=== PATIENT | male | born 1945 | race Caucasian/White ===

== ENCOUNTER 2017-12-07 10:44 | Inpatient (IN) | payer MEDICARE, OTHER ==
[2017-12-07] MEDS ORDERED: Ondansetron ODT 8 MG TAB ONE (11:31)
[2017-12-07 11:47] LABS: #Lymphocytes 0.7 thou/uL (1.20-3.40); #Monocytes 1.5 thou/uL (0.11-0.59); #Neutrophils 9.7 thou/uL (1.40-6.50); %Basophils 0.2 % (0.0-1.0); %Eosinophils 0.2 % (0.0-10.0); %Monocytes 12.2 % (0.0-10.0); %Neutrophils 81.4 % (42.0-75.0); Hemoglobin 14.9 g/dL (14.0-18.0); Mean Corpuscular HGB CONC 34.5 g/dL (32.0-36.0); Mean Corpuscular Hemoglobin 29.4 pg (27.0-31.0); Mean Corpuscular Volume 85.2 fL (78.0-98.0); Platelet Count 145 thou/uL (130-400); RBC Distribution Width 12.1 % (11.5-14.5); Red Blood Cell (RBC) Count 5.08 mill/uL (4.70-6.10)
[2017-12-07 11:52] LABS: INR-International Normal Ratio 1.1; PTT 36.7 SEC (22.9-36.1); Prothrombin Time 14.7 SEC (12.0-14.7)
[2017-12-07 12:07] LABS: ALT (SGPT) 15 U/L (8-55); AST (SGOT) 48 U/L (5-34); Albumin 4.2 g/dL (3.4-4.8); Alkaline Phosphatase 76 U/L (40-150); Anion Gap 11 mmol/L (10-20); BUN (Urea Nitrogen) 12 mg/dL (8.4-25.7); Bilirubin, Total 4.8 mg/dL (0.2-1.2); Calc. Creatinine Clearance 0 mL/min (70-130); Calcium 9.5 mg/dL (7.8-10.44); Carbon Dioxide 29 mmol/L (23-31); Chloride 93 mmol/L (98-107); Estimated GFR-MDRD 77; Globulin 3.4 g/dL (2.4-3.5); Glucose 102 mg/dL (83-110); Potassium 3.2 mmol/L (3.5-5.1); Protein, Total 7.6 g/dL (5.8-8.1); Sodium 130 mmol/L (136-145)
[2017-12-07 12:45] LABS: Bilirubin Small (Negative); Blood, Urine Large (Negative); Clarity CLEAR (Clear); Glucose, Urine (Dipstick) Negative (Negative); Leukocyte Small (Negative); Nitrite Negative (Negative); Protein, Urine (Dipstick) 100 mg/dL (Neg-Trace); Specific Gravity, Urine 1.019 (1.002-1.036)
[2017-12-07 12:46] LABS: Bacteria/HPF None Seen HPF (None Seen); Hyaline Casts/LPF 7-10 HYALINE CAST LPF (0-3 Hyaline); Pathc Cast-AUWi Flag 0.58 (0-2.49); RBC/HPF 21-50 HPF (0-3)
[2017-12-07 12:53] LABS: Renal Epithelial None Seen HPF (0-3); Transitional Epithelial NONE SEEN HPF (0-3)
[2017-12-07] MEDS ORDERED: Potassium Chloride 40 MEQ in Sodium Chloride 0.9% 500 ML IVPB ONE (13:00)
[2017-12-07] MEDS ORDERED: cefTRIAXone\\ROCEPHIN 1 GM VIAL ONE (13:17)
[2017-12-07] MEDS ORDERED: Acetaminophen 500 MG TAB ONE (13:32)
[2017-12-07] MEDS ORDERED: Zolpidem Tartrate 5 MG TAB PO PRN (14:29)
[2017-12-07] MEDS ORDERED: traMADol HCl 50 MG TAB PO PRN (14:29)
[2017-12-07] MEDS ORDERED: Chloraseptic Spray 180 ml Bottle PO PRN (14:29)
[2017-12-07] MEDS ORDERED: Loperamide HCl 2 MG CAP PO PRN (14:29)
[2017-12-07] MEDS ORDERED: Ondansetron HCl/PF 4 MG/2 ML Vial IVP PRN (14:29)
[2017-12-07] MEDS ORDERED: hydrALAZINE 20 MG/ML VIAL SLOW IVP PRN (14:29)
[2017-12-07] MEDS ORDERED: Promethazine HCl 25 MG/ML VIAL IM/IV PRN (14:29)
[2017-12-07] MEDS ORDERED: Senokot 8.6 MG TAB PO PRN (14:29)
[2017-12-07] MEDS ORDERED: Artificial Tear Sol 15 ML BOT EA EYE PRN (14:29)
[2017-12-07] MEDS ORDERED: Ondansetron ODT 4 MG TAB PO PRN (14:29)
[2017-12-07] MEDS ORDERED: Sodium Chloride 0.65% Nasal 44 ML BOT EA NARE PRN (14:29)
[2017-12-07] MEDS ORDERED: Mag-Al 1200 mg/1200 mg/30 ML UDCUP PO PRN (14:29)
[2017-12-07] MEDS ORDERED: Loratadine 10 MG TAB PO PRN (14:29)
[2017-12-07] MEDS ORDERED: Milk Of Magnesia 30 ML UDCUP PO PRN (14:29)
[2017-12-07] MEDS ORDERED: Labetalol HCl 100 MG/20 ML VIAL SLOW IVP PRN (14:29)
[2017-12-07] MEDS ORDERED: Diabetic Tussin 200 MG/10 ML UDCUP PO PRN (14:29)
[2017-12-07] MEDS ORDERED: Eucerin (Mineral Oil/Petrolatum,White) 30 gm Jar TOP PRN (14:29)
[2017-12-07 14:32] VITALS: BMI 27.0
--- NOTE | 2017-12-07 14:32 | HP ---
PRIMARY CARE PHYSICIAN: Dr. Anthony in [place]. REASON FOR ADMISSION: Sent by alarm signaler for dehydration. HISTORY OF PRESENT ILLNESS: A 72-year-old male who has underlying history of benign enlargement of prostate on Flomax who started having acute flank pain on Monday night. His pain was radiating to left side of flank region. He had several, 8 times vomiting containing of food particle. He thought maybe constipation and that is why he took enema by himself at home and he had clear bowel movement. Despite that, during nighttime he had persistent vomiting. The next day morning he was trying to see his primary care physician, but he was not able to make it and he was referred to emergency room. On that day, Monday, the patient had CT abdomen and the patient was diagnosed with hemorrhagic renal cysts. The patient was given followup appointment with Dr. Brooks and the patient was prescribed Zofran and tramadol, and he was discharged home. After going home, the patient continued to have nausea and vomiting. He was not able to handle food. He was only drinking some water and Gatorade. Sometimes he was able to hold, but most of the time he was not able to hold. He was trying Zofran and tramadol. For the last couple of days, the patient was also experiencing difficulty urination. He was having increased frequency. He was not able to empty his bladder. He was feeling warm yesterday. He did not have any chills. Today in the emergency room he has fever of 100.1. The patient was referred to Dr. Brooks today and that is why he had regular appointment with Nephrology and the patient clinically appeared dehydrated and that is why he was requested to go to the ER for evaluation. Today in the emergency room, routine blood tests showed leukocytosis with a left shift, hyponatremia, hypokalemia. The patient' s urinalysis suggestive of urinary tract infection and he has fever, so that is why we are admitting this patient in hospital for UTI and intractable nausea and vomiting as well as hemorrhagic renal cyst. Dr. Pedraza was notified from the ER and he recommended that patient only needs symptomatic treatment. Dr. Brooks was also on notified from the ER. REVIEW OF SYSTEMS: The following complete review of systems was negative, unless otherwise mentioned in the HPI or below: Constitutional: Weight loss or gain, ability to conduct usual activities. Skin: Rash, itching. Eyes: Double vision, pain. ENT/Mouth: Nose bleeding, neck stiffness, pain, tenderness. Cardiovascular: Palpitations, dyspnea on exertion, orthopnea. Respiratory: Shortness of breath, wheezing, cough, hemoptysis, fever or night sweats. Gastrointestinal: Poor appetite, abdominal pain, heartburn, nausea, vomiting, constipation, or diarrhea. Genitourinary: Urgency, frequency, dysuria, nocturia. Musculoskeletal: Pain, swelling. Neurologic/Psychiatric: Anxiety, depression. Allergy/Immunologic: Skin rash, bleeding tendency. Please see my HPI for pertinent positives and negatives. All other review of systems reviewed and negative except as mentioned in the HPI. PAST MEDICAL HISTORY: Mild intermittent asthma, benign enlargement of prostate , allergic rhinitis. PAST PSYCHIATRIC HISTORY: Reviewed and negative. PAST SURGICAL HISTORY: Sinus surgery, hernia repair. FAMILY HISTORY: Father was diagnosed with stomach cancer several years ago. No family history of coronary artery disease or stroke. SOCIAL HISTORY: The patient is and lives in [place] with his . No history of tobacco, alcohol or illicit drug abuse. ALLERGIES: SULFA DRUGS. CURRENT HOME MEDICATIONS: Flomax 0.4 mg daily, Flonase nasal spray daily. EMERGENCY ROOM COURSE: The patient is given Rocephin 1 gram, potassium chloride 40 mEq, Zofran 8 mg, morphine 4 mg, and IV fluid. PHYSICAL EXAMINATION: VITAL SIGNS: Currently, temperature 100.1, pulse 85, respiratory rate 20, blood pressure 161/87, saturation 95% on room air, weight 91 kilograms. GENERAL: The patient is currently alert, oriented x3, in no obvious acute distress. HEENT: Head is normocephalic, atraumatic. Eyes: Pupils round, reactive to light. Extraocular muscle intact. ENT: Oropharynx within normal limits. Dry mucous membrane, no oral lesion, no pharyngeal erythema, no exudate. NECK: Supple, no JVD, no thyromegaly, no carotid bruit, no jugular venous distention. LUNGS: Clear to auscultation without any rhonchi or rales. CARDIAC: S1, S2 regular. No murmur, no gallop, no rub. ABDOMEN: The patient does have tenderness in the left upper quadrant and left flank region. Bowel sounds present. No peritoneal sign, no guarding, no rigidity, no rebound. BACK: The patient does have mild tenderness in left flank region. EXTREMITIES: Upper extremity passive movement of all joints are normal. Lower extremities: No edema. Good peripheral pulsation, no calf tenderness. SKIN: No skin rash. HEMATOLOGIC: No lymphadenopathy. PSYCHIATRIC: Normal affect. NEUROLOGIC: The patient is alert, oriented x3. Cranial nerves II-XII intact. Motor and sensation within normal limits. No focal neurological deficit noted. SIGNIFICANT LABORATORY DATA: CBC: WBC 12.0, hemoglobin 14.9, platelet 145 with left shift. INR 1.1. BMP: Sodium 130, potassium 3.2, chloride 93, carbon dioxide 29, BUN 12, creatinine 0.96, glucose 102, calcium 9.5. LFT: Bilirubin 4.8, AST 48, ALT 15, alkaline phosphatase 76, albumin 4.2. Urinalysis ; blood large, leukocyte esterase small, RBC 21-50 and WBCs 7-10. ASSESSMENT AND PLAN: 1. Intractable nausea and vomiting, most likely related with hemorrhagic renal cyst associated with urinary tract infection. The patient has failed outpatient therapy and he is getting dehydrated. He has clinical evidence of dehydration as well. We will keep this patient in hospital for IV hydration. We will treat him with Zofran and Phenergan on a p.r.n. basis. We will continue with IV fluid for hydration and monitor electrolytes and replace accordingly. 2. Hemorrhagic renal cyst. We will obtain renal ultrasound to see any other cyst. At this point, the patient has symptomatic treatment. We will continue with morphine 4 mg every 4 hourly p.r.n. If needed, will consider Urology evaluation. Dr. Brooks will be consulted as he sent this patient from his clinic. 3. Urinary tract infection. The patient does have urinary tract infection symptoms, his urinalysis is suggestive of urinary tract infection. We will send urine culture and will start Rocephin 1 gram q.24 hours and will follow up on urine culture result. 4. Hyponatremia, hypokalemia. As mentioned above, the patient clinically appeared dehydrated. The patient will be given normal saline with KCl at 125 mL per hour and we will repeat BMP tomorrow. 5. Volume depletion, likely due to problem #1. Patient is getting IV fluid. We will monitor volume status. 6. Benign enlargement of prostate. We will continue Flomax 0.4 mg p.o. daily. 7. Deep venous thrombosis prophylaxis, we will avoid Lovenox product because of hemorrhagic renal cyst recently. We will provide only SCD boots and will ambulate as much as possible. 8. Gastrointestinal prophylaxis, Pepcid 20 mg IV b.i.d. 9. Code status: The patient is FULL CODE. The patient's is surrogate decision maker. 10. Hypertension, most likely related with the patient's pain and intractable nausea and vomiting, but while in hospital we will monitor his vital signs more frequently and if needed, we will start antihypertensive medication. Disposition plan based on clinical course. We are expecting patient's stay in hospital more than 2 midnights. Plan of care discussed with the patient and his at bedside. At this point, we will start a regular diet. The patient is instructed to order diet as tolerated only. MTDD
--- NOTE | 2017-12-07 16:19 | ULT ---
RENAL SONOGRAM: History: Flank pain. Renal mass. FINDINGS: Right kidney measures up to 13.6 cm. At the superior pole is a very large cyst measuring up to 6.5 x 6.4 cm greatest diameters. No hydronephrosis. Left kidney measures up to 15.7 cm and contains cysts at the superior to mid poles, measuring up to 7 .6 cm. At the inferior pole is a lobular heterogeneous solid mass measuring up to 7.0 x 6.8 x 6.5 cm diameters. Urinary bladder is unremarkable. IMPRESSION: 1. Large heterogeneous solid mass at the inferior pole left kidney. Renal cell neoplasm is favored. P manny consider dedicated CT kidneys, with and without IV contrast, for better characterization. 2. Large bilateral recent cyst. No evidence of urinary tract obstruction. POS: MARGARET
[2017-12-07] MEDS: NS 0.9% w/ 20 MEQ KCL 1,000 ML/1,000 ML BAG IV SCH ×2 (17:57→22:30)
--- NOTE | 2017-12-07 19:55 | CON ---
DATE OF CONSULTATION: 12/07/2017 HISTORY OF PRESENT ILLNESS: Mr. Jo is a 72-year-old white male who was seen at the clinic today f or followup of his left flank pain. He was seen at the [facility] several days ago for a flank pain. This was associated with nausea and vomiting. An imaging of the abdomen with a CT scan showed a le ft hemorrhagic cyst. He was treated symptomatically at that time. He was given pain medications. W hen he was discharged, the nausea and vomiting persisted. He is unable to take anything p.o. He den ies any dysuria or urinary frequency or diarrhea with this. He has a low grade fever according to gomez raza? We are now being consulted for this left hemorrhagic cyst and the possibility of volume deple tion. He is currently being empirically treated with antibiotics as well as IV hydration. He was al so noted to be hypokalemic, which is probably a reflection of the nausea and vomiting as well as decr eased p.o. intake. REVIEW OF SYSTEMS: Positive for nausea and vomiting, positive for low grade fever, positive for left flank pain, positive for dysuria. No diarrhea. Positive for constipation. Decreased appetite, dec reased energy level. No headache, no chest pain or shortness of breath, no hematochezia, no melena, no hematemesis. MEDICATIONS: Currently on [place] 5/325 q.4h to q.6h., Pepcid 20 mg IV daily, ceftriaxone 1 g IV q.24 hours, hydralazine 10 mg IV q.4h p.r.n. for BP systolic 180 or greater, Imodium p.r.n, normal saline plus 20 mEq of KCl 100 - 125 mL per hour. PAST MEDICAL HISTORY: 1. Benign prostatic hypertrophy, spinal cord, status post spinal cord leakage. 2. Status post chronic sinusitis. PAST SURGICAL HISTORY: Status post ventral hernia repair, status post colonoscopy, status post maxil marli antrostomy, status post frontal sinusotomy as well as sphenoidotomy. He also had submucosal res ection of inferior turbinates. 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 Education, high school. No history of smoking. He is a [place] vet. No I V drug abuse. Alcohol - social drinker. ALLERGIES: SULFA. TRAUMA: None. IMMUNIZATIONS: Up to date. HOSPITALIZATIONS: Please see past medical history. FAMILY HISTORY: No family history of ESRD. PHYSICAL EXAMINATION: VITAL SIGNS: Blood pressure is noted at 120/70, heart rate 70, temperature 98.7, respiratory rate 18 , pulse oximetry 91% on room air. GENERAL: Awake, lethargic, not in overt distress. SKIN: Decreased turgor. HEENT: He has pinkish conjunctivae, anicteric sclerae. NECK: No neck mass, no carotid bruits, no JVD. CHEST: No deformities. LUNGS: Clear breath sounds, no wheezing, no crackles. HEART: Normal sinus rhythm. No murmur, no gallops or rubs. ABDOMEN: Globular, soft, nontender. No masses. EXTREMITIES: No edema, no deformities. LABORATORY: Laboratories of 12/07/2017 white count 12, hemoglobin 14.9, creatinine 5.08. Sodium 130 , potassium 3.2, chloride 93, carbon dioxide 29, BUN 12, creatinine 0.96, calcium 9.5, AST 48, ALT 15 , albumin 4.2. Renal ultrasound currently pending. ASSESSMENT AND PLAN: 1. Nausea, vomiting/flank pain - Supportive management, p.r.n. pain medication. Due to decreased p. o. intake, we will start patient on empiric volume repletion of normal saline plus 20 mEq of KCl to r un at 125 mL per hour. 2. Mild hyponatremia/mild hypokalemia secondary to volume depletion. Continue supportive care. Sta rt normal saline. 3. Left hemorrhagic cyst. Previous CT scan of the abdomen showed several cysts in the left kidney a nd one solitary cyst on the right kidney. This patient does not have a family history of polycystic kidney disease. Continue supportive care, continue pain management. 4. Urinary tract infection on ceftriaxone and adjust ceftriaxone to twice a day. I agree with current management.
[2017-12-07] MEDS: Famotidine/PF 20 mg/2ml Vial SLOW IVP SCH (20:21)
[2017-12-07] MEDS: Acetaminophen 325 MG TAB PO PRN (20:29)
[2017-12-08] MEDS: NS 0.9% w/ 20 MEQ KCL 1,000 ML/1,000 ML BAG IV SCH ×3 (02:20→20:18)
[2017-12-08] MEDS: HYDROcodone/Acetaminophen 5/325 mg Tablet PO PRN ×2 (04:53→23:25)
[2017-12-08 05:18] LABS: #Lymphocytes 0.9 thou/uL (1.20-3.40); #Monocytes 1.2 thou/uL (0.11-0.59); #Neutrophils 7.5 thou/uL (1.40-6.50); %Basophils 0.4 % (0.0-1.0); %Eosinophils 0.3 % (0.0-10.0); %Monocytes 12.1 % (0.0-10.0); %Neutrophils 78.2 % (42.0-75.0); Hemoglobin 12.7 g/dL (14.0-18.0); Mean Corpuscular HGB CONC 33.1 g/dL (32.0-36.0); Mean Corpuscular Hemoglobin 28.8 pg (27.0-31.0); Mean Corpuscular Volume 86.9 fL (78.0-98.0); Mean Platelet Volume 8.5 fL (7.4-10.4); Platelet Count 140 thou/uL (130-400); RBC Distribution Width 12.2 % (11.5-14.5); Red Blood Cell (RBC) Count 4.42 mill/uL (4.70-6.10); White Blood Cell (WBC) Count 9.5 thou/uL (4.8-10.8)
[2017-12-08 05:41] LABS: Anion Gap 11 mmol/L (10-20); BUN (Urea Nitrogen) 11 mg/dL (8.4-25.7); Calc. Creatinine Clearance 99 mL/min (70-130); Calcium 8.3 mg/dL (7.8-10.44); Carbon Dioxide 24 mmol/L (23-31); Chloride 100 mmol/L (98-107); Estimated GFR-MDRD 88; Glucose 95 mg/dL (83-110); Potassium 3.8 mmol/L (3.5-5.1); Sodium 131 mmol/L (136-145)
--- NOTE | 2017-12-08 10:23 | PRG ---
DATE OF SERVICE: 12/08/2017 SUBJECTIVE: Mr. Jo is a 72-year-old white male who was admitted for persistent nausea and vomitin g, decreased p.o. intake. He had a recent visit at the [facility] and the CT scan of the abdomen/kid anny shows a hemorrhagic cyst. However, repeat renal ultrasound shows a ? of a solid mass. For that reason, a Urology consult has been consulted. The possibility of a repeat CT scan remains. He is fe eling a little better with regards to the flank pain. He has been hydrated. His hypokalemia is much improved. No complaints of chest pain, shortness of breath. OBJECTIVE: VITAL SIGNS: Blood pressure is 159/88, heart rate 84, respiratory rate 24, temperature 98.8, pulse o x 94%. GENERAL: Awake, alert, comfortable, not in distress. SKIN: Adequate turgor. HEENT: Pinkish conjunctivae, anicteric sclerae. NECK: No neck mass, no carotid bruits, no JVD. CHEST: No deformities. LUNGS: Clear breath sounds, no wheezing, no crackles. HEART: Normal sinus rhythm. No murmur, no gallops or rubs. ABDOMEN: Globular, soft, nontender. No masses. EXTREMITIES: No edema, no deformities. MEDICATIONS: 12/08/2017 - Reviewed. LABORATORY DATA: 12/08/2017 - Sodium 131, potassium 3.8, chloride 100, carbon dioxide 24, BUN 11, cr eatinine 0.85. White count 9.5, hemoglobin 12.7. ASSESSMENT AND PLAN: 1. Volume depletion. Currently on IV hydration. Nausea and vomiting is actually improved. 2. Hypokalemia, resolved. 3. Hyponatremia - secondary to volume depletion, slowly improving serum sodium. 4. Left renal mass - renal ultrasound suggested a large heterogeneous mass in the inferior pole of the left kidney, possibility of renal neoplasm exists based on this ultrasound. However, the patient had a CT scan of the kidneys a few days ago and it showed hemorrhagic cyst. We will be getting an i nput from Urology to see if he will need another repeat CT scan of the kidneys. For the moment I agree with current management. Recheck base met and CBC in the a.m.
--- NOTE | 2017-12-08 10:48 | PDOC.PN ---
- Subjective Encounter Start Date: 12/08/17 Encounter Start Time: 08:30 -: old records requested/rev Patient seen and examined. No new complaints. No overnight events still has nausea, less flank pain, - Objective Resuscitation Status: Resuscitation Status FULL:Full Resuscitation MAR Reviewed: Yes Vital Signs & Weight: Vital Signs (12 hours) Temp Pulse Resp BP Pulse Ox 12/08/17 08:00 98.8 F 84 24 H 95 12/08/17 07:52 98.8 F 84 24 H 159/88 H 95 12/08/17 04:51 99 F 90 17 169/84 H 93 L 12/08/17 04:00 98.6 F 86 18 158/74 H 94 L 12/08/17 00:00 98.9 F 91 19 142/65 H 95 Weight Weight 200 lb I&O: 12/07/17 12/08/17 12/09/17 06:59 06:59 06:59 Intake Total 2230 Output Total 1100 Balance 1130 Result Diagrams: 12/08/17 04:47 12/08/17 04:47 Radiology Reviewed by me: Yes (renal US) Phys Exam - Physical Examination Constitutional: NAD HEENT: PERRLA, moist MMs, sclera anicteric Neck: no JVD, supple Respiratory: no wheezing, no rales, no rhonchi Cardiovascular: RRR, no significant murmur, no rub Gastrointestinal: soft, non-tender, no distention, positive bowel sounds Musculoskeletal: no edema, pulses present Neurological: non-focal, normal sensation, moves all 4 limbs Psychiatric: normal affect, A&O x 3 Skin: no rash, normal turgor Dx/Plan (1) BPH (benign prostatic hyperplasia) Code(s): N40.0 - BENIGN PROSTATIC HYPERPLASIA WITHOUT LOWER URINRY TRACT SYMP Status: Chronic (2) Bilateral renal cysts Code(s): N28.1 - CYST OF KIDNEY, ACQUIRED Status: Chronic (3) Hemorrhage of cyst of [place] kidney Code(s): N28.89 - OTHER SPECIFIED DISORDERS OF KIDNEY AND URETER; N28.1 - CYST OF KIDNEY, ACQUIRED Status: Acute (4) Hypokalemia Code(s): E87.6 - HYPOKALEMIA Status: Acute (5) Hyponatremia Code(s): E87.1 - HYPO-OSMOLALITY AND HYPONATREMIA Status: Acute (6) Intractable nausea and vomiting Code(s): R11.2 - NAUSEA WITH VOMITING, UNSPECIFIED Status: Acute (7) Left flank pain Code(s): R10.9 - UNSPECIFIED ABDOMINAL PAIN Status: Acute (8) Renal mass, left Code(s): N28.89 - OTHER SPECIFIED DISORDERS OF KIDNEY AND URETER Status: Acute (9) UTI (urinary tract infection) Status: Acute (10) Chronic sinusitis Code(s): J32.9 - CHRONIC SINUSITIS, UNSPECIFIED Status: Chronic - Plan cont current plan of care, continue antibiotics * continue IVF with potassium * symptomatic treatment * medication reviewed as below * symptomatic treatment * will consult urology * nephrology following * pain controlled. Review of Systems - Review of Systems Eyes: negative: Pain, Vision Change, Conjunctivae Inflammation, Eyelid Inflammation, Redness, Other ENT: negative: Ear Pain, Ear Discharge, Nose Pain, Nose Discharge, Nose Congestion, Mouth Pain, Mouth Swelling, Throat Pain, Throat Swelling, Other Respiratory: negative: Cough, Dry, Shortness of Breath, Hemoptysis, SOB with Excertion, Pleuritic Pain, Sputum, Wheezing Cardiovascular: negative: chest pain, palpitations, orthopnea, paroxysmal nocturnal dyspnea, edema, light headedness, other Gastrointestinal: Nausea. negative: Vomiting, Abdominal Pain, Diarrhea, Constipation, Melena, Hematochezia, Other Genitourinary: negative: Dysuria, Frequency, Incontinence, Hematuria, Retention , Other Musculoskeletal: negative: Neck Pain, Shoulder Pain, Arm Pain, Back Pain, Hand Pain, Leg Pain, Foot Pain, Other Skin: negative: Rash, Lesions, Benedict, Bruising, Other - Medications/Allergies Allergies/Adverse Reactions: Allergies Allergy/AdvReac Type Severity Reaction Status Date / Time Sulfa (Sulfonamide Allergy Verified 12/07/17 15:30 Antibiotics) Medications: Current Medications Acetaminophen (Tylenol) 650 mg PO Q4H PRN PRN Reason: Headache/Fever or Pain Last Admin: 12/07/17 20:29 Dose: 650 mg Hydrocodone Bitart/Acetaminophen ([place] 5/325) 1 tab PO Q4H PRN PRN Reason: Moderate Pain (4-6) Last Admin: 12/08/17 04:53 Dose: 1 tab Al Hydroxide/Mg Hydroxide (Maalox) 30 ml PO Q6H PRN PRN Reason: Heartburn or Indigestion Artificial Tears (Tears Renewed 15ml Bottle) 0 drop EA EYE PRN PRN PRN Reason: Dry Eyes Famotidine (Pepcid) 20 mg SLOW IVP Q12HR [facility] Last Admin: 12/07/17 20:21 Dose: 20 mg Guaifenesin (Robitussin Sf) 200 mg PO Q4H PRN PRN Reason: Cough Hydralazine HCl (Apresoline) 10 mg SLOW IVP Q4H PRN PRN Reason: Systolic BP > 180 Potassium Chloride/Sodium Chloride (Ns 0.9% W/ 20 Meq Kcl) 1,000 ml in 1,000 mls @ 125 mls/hr IV .Q8H [facility] Last Admin: 12/08/17 02:20 Dose: 1,000 mls Ceftriaxone Sodium 2 gm/ (Sodium Chloride) 100 mls @ 200 mls/hr IVPB Q24HR [facility] Labetalol HCl (Normodyne) 20 mg SLOW IVP Q4H PRN PRN Reason: Systolic BP > 180 Loperamide HCl (Imodium) 2 mg PO PRN PRN PRN Reason: Diarrhea/Loose Stools Loratadine (Claritin) 10 mg PO DAILYPRN PRN PRN Reason: Sinus Symptoms Magnesium Hydroxide (Milk Of Magnesium) 30 ml PO DAILYPRN PRN PRN Reason: Constipation Mineral Oil/White Petrolatum (Eucerin Cream) 0 gm TOP BIDPRN PRN PRN Reason: Dry Skin Morphine Sulfate (Morphine) 4 mg SLOW IVP Q4H PRN PRN Reason: Pain Ondansetron HCl (Zofran Odt) 4 mg PO Q6H PRN PRN Reason: Nausea/Vomiting Ondansetron HCl (Zofran) 4 mg IVP Q6H PRN PRN Reason: Nausea/Vomiting Phenol (Chloraseptic [place] 180 Ml Bot) 0 ml PO PRN PRN PRN Reason: Sore Throat Promethazine HCl (Phenergan) 25 mg IM/IV Q6H PRN PRN Reason: Nausea/Vomiting Senna (Senokot) 2 tab PO HSPRN PRN PRN Reason: Constipation Sodium Chloride ([place] Nasal [place] 0.65%) 0 ml EA NARE QIDPRN PRN PRN Reason: Nasal Congestion Tramadol HCl (Ultram) 50 mg PO Q4H PRN PRN Reason: Moderate Pain (4-6) Zolpidem Tartrate (Ambien) 5 mg PO HSPRN PRN PRN Reason: Insomnia
[2017-12-08] MEDS ORDERED: cefTRIAXone\\ROCEPHIN 1 GM in Sodium Chloride 0.9% 100 ML IVPB SCH (13:00)
[2017-12-08] MEDS ORDERED: cefTRIAXone\\ROCEPHIN 2 GM in Sodium Chloride 0.9% 100 ML IVPB SCH ×2 (13:00)
[2017-12-08] MEDS: Famotidine/PF 20 mg/2ml Vial SLOW IVP SCH ×2 (13:09→20:18)
[2017-12-08] MEDS: Acetaminophen 325 MG TAB PO PRN (16:14)
--- NOTE | 2017-12-08 19:58 | CON ---
DATE OF CONSULTATION: 12/08/2017 CONSULTING PHYSICIAN: Arianne Ramon MD MUSIC PROMOTER: Sudhakar Gold MD REASON FOR CONSULTATION: Renal mass. HISTORY OF PRESENT ILLNESS: Mr. Jo is a 72-year-old white male, who presented to the hospital wit h complaints of left-sided flank pain with nausea and vomiting. The problem started around 8 when the patient first began experiencing left-sided flank pain, which started progressively gettin g worse. He started having a sharp stabbing sensation with radiation around to his groin and along t he left flank and back. He did have nausea and vomiting, but denied any fevers or chills. When his pain was not well controlled, he went to the emergency room the following day at [facility] in [facility], where he underwent a CT scan with contrast, which demonstrated a hemorrhagic cyst in his left kidney. The patient was discharged home with instructions to hydrate and take pain medication. He did not take his pain medications as scheduled as was instructed due to increased difficulty with uri nation while on narcotic pain medication. The patient does have an underlying history of BPH and verna es Flomax, and he stated he did not want to lose the ability to urinate. His pain got worse afterwar ds and he had increased nausea and vomiting. Therefore, he followed up with Dr. Brooks, who he had been referred to, to see in followup after his ER visit. Dr. Brooks saw the patient and recommended that he go to the hospital for pain control since his pain was so poorly controlled. He was admitted to [facility] and underwent a renal ultrasound, which demonstrated a solid mass in the lower pole of the kidney in the same location as the previously mentioned hemorrhagic cyst noted on the CT at [facility]. There was concern for renal-cell carcinoma based on the ultrasound. Therefore, I hav e been consulted for further assistance. On my discussion with the patient, the patient again states that he does have some underlying urinary difficulties, but they are relatively well controlled norm ally with Flomax. He did not have any blood in his urine, any history of urinary tract infections, n ephrolithiasis, previous urologic surgeries. He was told that he may have a urinary tract infection while on this hospital admission, and he was started on antibiotics. Currently, he states he is feel ing much better. His pain has subsided significantly. He is no longer requiring IV pain medication and states the pain is only currently about 2 to 3/10. His appetite has also returned and he is no l onger having nausea or vomiting. ALLERGIES: SULFA. HOME MEDICATIONS: 1. Flomax 0.4 mg p.o. daily. 2. Flonase nasal spray daily. PAST MEDICAL HISTORY: 1. Intermittent asthma. 2. BPH. 3. Allergic rhinitis. PAST SURGICAL HISTORY: 1. Sinus surgery. 2. Hernia repair. SOCIAL HISTORY: The patient is and lives in [place] with his . He has no history of alc ohol abuse, tobacco abuse, or illicit drug use. FAMILY HISTORY: Noncontributory. He does have a father who was diagnosed with stomach cancer severa l years ago. There is no family history of renal-cell carcinoma. REVIEW OF SYSTEMS: A 12-point review of systems is remarkable only what was commented on the HPI, sp ecifically the nausea, vomiting, and flank pain. The remainder of the 12-point review of systems was reviewed and otherwise negative. PHYSICAL EXAMINATION: VITAL SIGNS: Temperature 100.1, pulse 80, respirations 18, blood pressure 142/80, saturation 92% on room air. GENERAL: No apparent distress, communicative, alert, well nourished, well developed, appears stated age. HEENT: Normocephalic, atraumatic. Pupils, symmetric and round. Sclerae nonicteric. Trachea midlin e. Moist mucous membranes. CARDIOVASCULAR: Regular rate and rhythm. Normal S1 and S2. Symmetric pulses. CHEST: No increased work of breathing. Symmetric expansion of lungs. Clear to auscultation anterio rly. ABDOMEN: Soft, nondistended. Mild tenderness to palpation on the left. Mild left CVA tenderness. No right CVA tenderness. No suprapubic tenderness. No organomegaly. Positive bowel sounds. GENITOURINARY: Penis is nonfocal. Testes are descended. SUAD is deferred. EXTREMITIES: No clubbing, cyanosis, or edema. MUSCULOSKELETAL: No joint deformities or joint erythema noted. Full range of motion. No inflammati on within the hands. SKIN: Warm, dry, good turgor. NEUROLOGIC: No pallor or rashes. PSYCHIATRIC: Alert and oriented x3. Appropriate mood and affect for situation. NEUROLOGIC: Cranial nerves II-XII appeared grossly intact. No focal or sensory motor deficits ident ified. LABORATORY AND X-RAY FINDINGS: On laboratory evaluation, a full set of labs are in the [employer] syst em, which I have reviewed. Of note, the patient's current white count is 9.5 with a hemoglobin of 12 .7, platelet count is 140. Creatinine is currently 0.85. Sodium is slightly low at 131. Urinalysis demonstrates 21-50 red cells, 7-10 white cells, 4-6 squamous cells, no bacteria, nitrite negative, 1 00 protein. Urine culture is negative at 24 hours. Blood cultures have no growth to date and cultur es are still progressing. On imaging, the patient has an ultrasound from 12/07/2017, which shows a large heterogeneous solid ma ss at the inferior pole of the left kidney suspicious for renal-cell carcinoma, as well as additional large bilateral renal cysts, which appeared to be simple cysts. I have reviewed the CT scan, which was included in his file as well as logging on to the [employer] system. In reviewing the CT an d report at [facility] facility, which demonstrates CT with contrast from 12/04/2017, 6.4 cm lef t renal cystic lesion with finding suggestive of recent internal hemorrhage, likely accounting for th e patient's pain, although an underlying neoplasm cannot be completely excluded. There is a nonspeci fic right lower lobe pulmonary nodule. I have reviewed these images myself and concur that it is lik leonard a hemorrhagic cyst given that the increased density material was in the dependent portion of the cyst with a clear delineation between the accumulated material and the rest of the cyst fluid. ASSESSMENT AND PLAN: A 72-year-old white male with a likely hemorrhagic cyst, which had probably con tinued to bleed after the CT on 12/04/2017, filling up the entire cyst space with blood clot resultin g in a solid-appearing mass on ultrasound which was taken on 12/07/2017. My primary concern is why t he bleeding had occurred in the first place. It is very possible that the patient has a Bosniak 4 co mplex renal cyst with a solid mass within the cyst, which subsequently had bled resulting in the hemo rrhage. As such, this cannot be reliably evaluated currently with the patient having a cyst full of blood. Therefore, as soon as the patient's pain is adequately controlled and he is doing well enough to go home, I would recommend discharge with followup in 6-[address] weeks with a [address] renal protocol a t that time. We will reevaluate the cyst once the blood has resolved and see if the patient has a co mplex renal cyst. If he does and it does appear to be a Bosniak 3 or 4 cyst, I would recommend treat ment given that he has had a hemorrhage and there is a high risk for malignancy. If it is a simple c yst or there is no concerning findings or has low complexity, we may opt to follow the renal cyst as opposed to operate on it surgically. At the current time, there does not appear to be any strong ind ication to perform any emergent intervention. I would go ahead and follow the cultures out, but it i s likely that the patient's increasing temperature is secondary to cytokine release from a hemorrhage within the kidney rather than an actual infection, as his urine culture is negative and he does not have strong findings on urinalysis to suggest that he has an infection, but just actually had a bleed within the kidney. Antibiotics can be stopped when deemed appropriate by the primary team, but I do not see any source of urinary infection at this point. SUMMARY OF RECOMMENDATIONS: 1. Continue conservative measures with hydration and pain control. 2. Continue the patient's Flomax for his BPH. 3. When the patient is able to keep his pain controlled with oral pain medications alone and is able to keep food and liquids down on his own without nausea or vomiting, I think he can be discharged ho me with followup with me in approximately 6-[address] scan done prior. We will review the im ages at that time and make a decision on whether surgical options need to be done or the patient can be monitored on a surveillance basis.
[2017-12-09] MEDS: NS 0.9% w/ 20 MEQ KCL 1,000 ML/1,000 ML BAG IV SCH (04:29)
[2017-12-09 04:57] LABS: #Eosinphils 0.1 thou/uL (0.0-0.7); #Lymphocytes 1.1 thou/uL (1.20-3.40); #Monocytes 1.1 thou/uL (0.11-0.59); %Basophils 0.3 % (0.0-1.0); %Eosinophils 1.6 % (0.0-10.0); %Lymphocytes 12.9 % (21.0-51.0); %Monocytes 13.6 % (0.0-10.0); %Neutrophils 71.7 % (42.0-75.0); Hemoglobin 11.3 g/dL (14.0-18.0); Mean Corpuscular Hemoglobin 28.8 pg (27.0-31.0); Mean Corpuscular Volume 87.2 fL (78.0-98.0); Mean Platelet Volume 8.2 fL (7.4-10.4); Platelet Count 164 thou/uL (130-400); Red Blood Cell (RBC) Count 3.93 mill/uL (4.70-6.10); White Blood Cell (WBC) Count 8.4 thou/uL (4.8-10.8)
[2017-12-09 05:18] LABS: Anion Gap 9 mmol/L (10-20); BUN (Urea Nitrogen) 8 mg/dL (8.4-25.7); Calc. Creatinine Clearance 0 mL/min (70-130); Calcium 8.2 mg/dL (7.8-10.44); Carbon Dioxide 27 mmol/L (23-31); Chloride 99 mmol/L (98-107); Estimated GFR-MDRD 84; Glucose 95 mg/dL (83-110); Potassium 3.7 mmol/L (3.5-5.1); Sodium 131 mmol/L (136-145)
[2017-12-09] MEDS ORDERED: NS 0.9% w/ 20 MEQ KCL 1,000 ML/1,000 ML BAG IV SCH (07:00)
[2017-12-09 07:40] VITALS: BP 168/87; TEMP 98.3
[2017-12-09] MEDS: Famotidine/PF 20 mg/2ml Vial SLOW IVP SCH (08:50)
--- NOTE | 2017-12-09 11:01 | PRG ---
DATE OF SERVICE: 12/09/2017 RENAL MEDICINE SUBJECTIVE: Mr. Jo is a 72-year-old white male who was admitted for severe left flank pain. He h ad initial diagnosis of hemorrhagic left renal cyst. Pain persisted and patient went to volume deple tion. He was admitted for IV hydration due to the decreased p.o. intake. A repeat renal ultrasound was done in the kidneys and there was a question anna it may be a left renal mass. Urology consult h as been done. The feeling is that this may be still hemorrhagic left renal cyst. However, this coul d be a complex renal cyst. For that reason, recommendation by Urology is to repeat CT scan imaging s everal weeks from now - 6-8 weeks to determine if there is underlying mass that may have caused the b leeding or if this is a complex renal cyst. He is feeling a little better. He is tolerating p.o. T he left flank pain is slightly improved. He denies any chest pain, shortness of breath. OBJECTIVE: VITAL SIGNS: Blood pressure 168/87, heart rate 86, respiratory rate 18, temperature 98.3, pulse ox 9 6%. GENERAL: Awake, alert, comfortable, not in overt distress. SKIN: Adequate turgor. HEENT: He has pinkish conjunctivae, anicteric sclerae. NECK: No neck mass, no carotid bruits, no JVD. CHEST: No deformities. LUNGS: Clear breath sounds. No wheezing, no crackles. HEART: Normal sinus rhythm. No murmurs, no gallops, no rubs. ABDOMEN: Globular, soft, nontender, no masses. EXTREMITIES: No edema. MEDICATIONS: Medications of 12/09/2017 was reviewed. LABORATORY DATA: Laboratories of 12/09/2017; sodium 131, potassium 3.7, chloride 99, carbon dioxide 27, BUN 8, creatinine 0.89, glucose 95, calcium 8.2, white count 8.4, hemoglobin 11.3. Urine C&S, no growth to date. Blood C&S no growth to date. ASSESSMENT AND PLAN: 1. Left hemorrhagic cyst - supportive care. Urology has been consulted. The plan is to repeat anot her CT scan imaging of the kidneys in 6-8 weeks to determine if he has underlying complex cyst and/or an underlying solid mass. Continue supportive care. 2. Volume depletion - much improved with IV hydration. He is tolerating p.o. partially. 3. From a renal point of view, this patient can be discharged. He will follow up with his urologist in 6-8 weeks.
--- NOTE | 2017-12-09 11:27 | DIS ---
DATE OF ADMISSION: 12/07/2017 DATE OF DISCHARGE: 12/09/2017 PRIMARY CARE PHYSICIAN: Moi Anthony M.D. DISCHARGE DISPOSITION: Home. PRIMARY DISCHARGE DIAGNOSES: Intractable nausea and vomiting, controlled; acute left flank pain, con trolled; urinary tract infection; hemorrhagic renal cyst; bilateral renal cysts. SECONDARY DISCHARGE DIAGNOSES: Chronic sinusitis, benign enlargement of prostate. PRIMARY PROCEDURE/OPERATION: None. RADIOLOGICAL INVESTIGATION: Renal ultrasound showed solid mass in left inferior pole of kidney and b ilateral renal cysts. SIGNIFICANT LABORATORY DATA: WBC 8.4, hemoglobin 11.3, platelet 164. INR 1.1. Sodium 131, potassiu m 3.7, BUN 8, creatinine 0.89, calcium 8.2. LFT normal. Urinalysis suggestive of UTI. Blood cultur e negative. Urine culture negative. DISCHARGE MEDICATIONS: Cipro 500 mg p.o. b.i.d. for 5 days, Tylenol #3 one or two tablets q.6 hourly p.r.n., Pepcid 20 mg p.o. b.i.d., Flonase nasal spray daily, Zofran ODT 4 mg q.6 hourly p.r.n., Flom ax 0.4 mg p.o. at bedtime. CONTRAINDICATIONS: None. CODE STATUS: FULL CODE. INPATIENT CONSULTANTS: Dr. Brooks was consulted while in hospital. Dr. Asif De La Fuente saw this patient while in hospital. ALLERGIES: SULFA DRUGS. DISCHARGE PLAN: Post hospital, patient will follow up with Dr. Asif De La Fuente in 2-3 weeks as instruc buster. The patient will make appointment with primary care physician in 1 week. HOSPITAL COURSE: A 72-year-old male who was having left-sided flank pain and that is why he went to [facility] Emergency Room where he had CT of the abdomen and pelvis and found with hemor rhagic renal cyst. He was given pain medication in the emergency room and he was discharged with ora l pain medications. Patient was having intractable nausea and vomiting. He was not able to hold any thing down and his pain was also not controlled and that is why patient was dehydrated. He went to [facility] Dr. Brooks in his office and Dr. Brooks send him to the hospital for hydration. We did renal ultrasound and renal ultrasound showed that left-sided, there is a solid mass and that are multiple bilateral c yst as well. His renal function was normal. His abnormal electrolytes with sodium and potassium was improved. Dr. Gold was consulted for suspected left renal mass, but he attributed that because of renal cyst , it started bleeding that was continued and because of few blood clot, it appeared to be solid. He wanted to wait for another 2-3 weeks and he will do repeat imaging after discharge in his office and he will need further evaluation as an outpatient basis. Patient's pain is controlled. His electrolytes completely improved. He is ambulatory, tolerating p. o. well. His nausea and vomiting resolved. Patient wants to go home today. All consultants cleared him for discharge as well. The patient is seen and examined at bedside today. PHYSICAL EXAMINATION: VITAL SIGNS: Currently, temperature 98.3, pulse 86, respiratory rate 18, saturation 96%, blood press ure 168/87. GENERAL: The patient is currently alert, awake, no acute distress. HEAD: Normocephalic, atraumatic. EYES: Pupils round and reactive to light. Extraocular muscle intact. ENT: Oropharynx within normal limits. Moist mucous membranes. No oral lesion, no pharyngeal erythe ma, no exudate. NECK: Supple, no JVD, no thyromegaly, no carotid bruit. LUNGS: Clear to auscultation without any rhonchi or rales. CARDIAC: S1 and S2 regular without any murmur. ABDOMEN: Soft, bowel sounds present, nontender, nondistended. No organomegaly, no mass, no suprapub ic tenderness. BACK: Examination unremarkable. No CVA tenderness. EXTREMITIES: Upper extremity passive movement of all joints are normal. Lower extremity, no edema. Good peripheral pulsation. SKIN: No skin rash. HEMATOLOGICAL SYSTEM: No lymphadenopathy. NEUROLOGIC: Nonfocal examination. We noted that patient's blood pressure was running high while in hospital, but we advised him to keep monitor at home as well and if patient's blood pressure remains high, then he has to follow up with primary care physician and get prescription for antihypertensive medication. Plan of care discussed with the patient and patient's at bedside today.
--- NOTE | 2017-12-09 14:02 | PRG ---
DATE OF SERVICE: 12/09/2017 SUBJECTIVE: The patient states he is feeling much better. He has very minimal left flank pain now. His hemoglobin has been stable and he states he is ready to go home. OBJECTIVE: VITAL SIGNS: Temperature 98.3, pulse 86, respirations 18, blood pressure 168/87 , saturation 96% on room air. GENERAL: No apparent distress, communicative and alert. CARDIOVASCULAR: Regular rate and rhythm. CHEST: No increased work of breathing. ABDOMEN: Soft, very mild tenderness to palpation in the left, very mild left CVA tenderness. No right-sided tenderness and no suprapubic tenderness. EXTREMITIES: No clubbing, cyanosis or edema. LABORATORY DATA: A full set of labs in the [employer] system, which I have reviewed. Of note, the patient's hemoglobin is 11.3 with a white count of 8.4, creatinine is 0.89, sodium remains somewhat low at 131. Urine culture has rare growth. Subculture is currently in progress. Blood cultures are still negative currently. ASSESSMENT AND PLAN: A 72-year-old white male with likely a left hemorrhagic cyst with possible underlying malignancy or complex renal cyst. At the current time, there is no need for urgent surgical intervention. As per my prior note, I still think the best plan would be a followup CT in 6-8 weeks for reimaging and evaluation of what caused the bleeding and whether or not there is any underlying malignancy. At that point, surgical intervention can be discussed if there is something of concern. For now, I am okay with the patient being discharged home. I will go ahead and sign off. If the hyponatremia is a concern per the medical team, this can be addressed prior to discharge, but I will leave this up to the hospitalist. The urine culture has rare growth. I am not entirely sure this warrants treatment; however, if the patient begins developing fevers or worsening pain, it may be prudent to do a full course of 7 days of antibiotics. If antibiotics is going to be used, a fluoroquinolone will be first line for at least 7 days. MTDD
== END 2017-12-09 13:02 | disposition home or self-care (01) | DRG 641 ==
LOC: ERS 10:44 → T4-B 14:28
PROVIDERS: ADMIT Internal Medicine; ATTEND Internal Medicine
DX: E86.0 Dehydration (principal); N39.0 Urinary tract infection, site not specified; Q61.02 Congenital multiple renal cysts; N28.89 Other specified disorders of kidney and ureter; E87.1 Hypo-osmolality and hyponatremia; E87.6 Hypokalemia; R11.2 Nausea with vomiting, unspecified; N40.0 Benign prostatic hyperplasia without lower urinary tract symptoms; J32.9 Chronic sinusitis, unspecified; Z88.2 Allergy status to sulfonamides; Z79.899 Other long term (current) drug therapy
CPT/HCPCS: 36415; 36416; 76770; 80048; 80053; 81003; 81015; 85025; 85610; 85730; 87040; 87086; 96361; 96365; 96375; J0696; J2270; J3480; J7050; S0028

== ENCOUNTER 2018-02-01 09:40 | Outpatient (CLI) | payer MEDICARE ==
--- NOTE | 2018-02-01 11:27 | RAD ---
CHEST TWO VIEWS: History: Renal mass. Comparison: None. FINDINGS: Lungs are without focal airspace consolidation, pneumothorax or effusions. No acute osseous abnormali ty. No suspicious osteolytic or osteoblastic lesions. Cardiac silhouette and mediastinal contours are within normal limits. IMPRESSION: No acute intrathoracic abnormality. POS: [facility]
--- NOTE | 2018-02-01 14:21 | NM ---
NUCLEAR MEDICINE BONE SCAN WHOLE BODY: (SKELETAL SCINTIGRAPHY) DATE: 02-01-18 HISTORY: 72-year-old male with large solid left renal neoplastic tumor mass. TECHNIQUE: IV injection of [id number]: 31.5 mCi 3 hour delayed whole body skeletal scintigraphy in anterior and posterior views. FINDINGS: There are no foci of asymmetrically increased uptake that are particularly suspicious for bone metast ases. There is focal intense concentration of radiopharmaceutical overlying the left renal upper pole , presumably in one of the calices. Recommend correlation with CT. IMPRESSION: No compelling evidence of skeletal metastasis. DIANA Naranjo POS: MARGARET
== END 2018-02-01 09:41 | disposition home or self-care (01) ==
LOC: NM 09:40
PROVIDERS: ATTEND Urology
DX: N28.89 Other specified disorders of kidney and ureter (principal)
CPT/HCPCS: 71046; 78306; A9503

== ENCOUNTER 2018-09-15 05:43 | Observation (INO) | payer MEDICARE ==
[2018-09-15] MEDS ORDERED: Morphine 4 MG/ML VIAL ONE (06:18)
[2018-09-15 06:22] LABS: Bilirubin Negative (Negative); Blood, Urine Negative (Negative); Clarity CLEAR (Clear); Glucose, Urine (Dipstick) Negative (Negative); Leukocyte Negative (Negative); Nitrite Negative (Negative); Protein, Urine (Dipstick) Negative (Neg-Trace); Specific Gravity, Urine 1.021 (1.002-1.036); pH, Urine 6.5 (5.0-9.0)
[2018-09-15 06:27] LABS: #Basophils 0.1 thou/uL (0.0-0.2); #Eosinphils 0.4 thou/uL (0.0-0.7); #Lymphocytes 1.2 thou/uL (1.20-3.40); #Monocytes 0.5 thou/uL (0.11-0.59); #Neutrophils 5.6 thou/uL (1.40-6.50); %Basophils 0.9 % (0.0-1.0); %Lymphocytes 15.4 % (21.0-51.0); %Monocytes 6.7 % (0.0-10.0); %Neutrophils 71.9 % (42.0-75.0); Hemoglobin 15.4 g/dL (14.0-18.0); Mean Corpuscular HGB CONC 32.9 g/dL (32.0-36.0); Mean Corpuscular Hemoglobin 28.6 pg (27.0-31.0); Mean Corpuscular Volume 86.9 fL (78.0-98.0); Mean Platelet Volume 7.9 fL (7.4-10.4); Platelet Count 191 thou/uL (130-400); RBC Distribution Width 12.2 % (11.5-14.5); White Blood Cell (WBC) Count 7.8 thou/uL (4.8-10.8)
[2018-09-15 06:47] LABS: ALT (SGPT) 20 U/L (8-55); AST (SGOT) 22 U/L (5-34); Albumin 4.6 g/dL (3.4-4.8); Alkaline Phosphatase 68 U/L (40-150); Anion Gap 14 mmol/L (10-20); BUN (Urea Nitrogen) 21 mg/dL (8.4-25.7); Bilirubin, Total 2.2 mg/dL (0.2-1.2); Calc. Creatinine Clearance 0 mL/min (70-130); Calcium 9.9 mg/dL (7.8-10.44); Carbon Dioxide 26 mmol/L (23-31); Chloride 101 mmol/L (98-107); Estimated GFR-MDRD 83; Globulin 3.3 g/dL (2.4-3.5); Glucose 96 mg/dL (83-110); Potassium 3.6 mmol/L (3.5-5.1); Protein, Total 7.9 g/dL (5.8-8.1); Sodium 137 mmol/L (136-145)
--- NOTE | 2018-09-15 07:44 | CT ---
EXAM: CT Abdomen Pelvis W Con PROVIDED CLINICAL HISTORY: Back pain COMPARISON: None FINDINGS: There is a 9 mm noncalcified right lower lobe pulmonary nodule medially on image 19 of series 2. The solid abdominal organs demonstrate no evidence for an acute abnormality. Large bilateral renal cy sts are seen, appearing predominantly simple in nature. There is a cystic and solid exophytic mass arising from the inferior pole of the left kidney measuring about 3.9 cm. No bowel dilatation, inflammatory fat stranding, free fluid or free air apparent. Postoperative buitrago es are noted associated with the anterior abdominal wall. The appendix appears normal. Scattered vascular calcifications are seen. The osseous structures demonstrate no concerning lytic or blastic lesions. IMPRESSION: 1. 3.9 cm cystic and solid inferior pole left renal mass suspicious for neoplasm. 2. 9 mm right lower lobe pulmonary nodule, which may reflect a metastatic lesion.
[2018-09-15] MEDS ORDERED: Ondansetron PF 4 MG/2 ML Vial ONE (08:00)
--- NOTE | 2018-09-15 08:11 | RAD ---
2 AP VIEWS PELVIS: Date: 09/15/18 INDICATION: Difficulty walking. FINDINGS: There is hernia mesh overlying the lower anterior abdominal wall. No acute fracture is evident. There is mild degenerative change of both hips. There is mild disc degenerative disease of the lower lumba r spine. Bowel gas pattern is unobstructed. No suspicious calcification is evident. IMPRESSION: No acute abnormality. POS: [facility]
[2018-09-15] MEDS ORDERED: Ketorolac Tromethamine 30 MG/ML VIAL ONE (08:22)
[2018-09-15] MEDS ORDERED: HYDROmorphone 0.5 MG/0.5 ML SYRINGE ONE (08:22)
[2018-09-15] MEDS ORDERED: Promethazine HCl 25 MG/ML VIAL ONE (08:55)
[2018-09-15] MEDS ORDERED: Loperamide HCl 2 MG CAP PO PRN (12:11)
[2018-09-15] MEDS ORDERED: Zolpidem Tartrate 5 MG TAB PO PRN (12:11)
[2018-09-15] MEDS ORDERED: Guaifenesin DM 100-10/5 ML UDCUP PO PRN (12:11)
[2018-09-15] MEDS ORDERED: Bisacodyl 5 MG TAB PO PRN (12:11)
[2018-09-15 12:52] VITALS: BMI 27.6
[2018-09-15] MEDS: Morphine 2 MG/ML SYRINGE SLOW IVP PRN (13:10)
--- NOTE | 2018-09-15 13:25 | HP ---
REASON FOR ADMISSION: Left back pain and hip pain. HISTORY OF PRESENT ILLNESS: This 72-year-old male with history of BPH and renal mass or renal cyst, on followup with MD Weaver, came to the hospital with back pain. He stated he has been having progressively worsening pain for last two weeks and this feels like different from his chronic back pain which he is following up with MD Weaver. He has also followed up with Dr. Gold. Apparently, he is having some left-sided hip pain on weightbearing and on movement when he will twist his left hip joint. He has also followed a oil tester, who did some message and did not get better. He had three treatments from them. No nausea or vomiting. He took some ibuprofen at home with no relief. He denies any leg numbness, leg weakness and few times radiation of pain to the left leg and also left back and flank region. No chest pain or palpitation. No fever, chills. PAST MEDICAL HISTORY: Positive for asthma, BPH, allergic rhinitis. PAST SURGICAL HISTORY: Sinus surgery and bilateral hernia repair. HOME MEDICATIONS: Include: 1. Flomax. 2. Zofran. 3. Flonase. 4. Pepcid. 5. Cipro. 6. Ibuprofen. ALLERGIES: SULFA. SOCIAL HISTORY: No smoking, alcohol, or drugs. FAMILY HISTORY: Positive for lung cancer. REVIEW OF SYSTEMS: CONSTITUTIONAL: Negative for weight loss or gain, ability to conduct usual activities. SKIN: Negative for rash, itching. EYES: Negative for double vision, pain. ENT/MOUTH: Negative for nose bleeding, neck stiffness, pain, tenderness. CARDIOVASCULAR: Negative for palpitations, dyspnea on exertion, orthopnea. RESPIRATORY: Negative for shortness of breath, wheezing, cough, hemoptysis, fever or night sweats. GASTROINTESTINAL: Negative for poor appetite, abdominal pain, heartburn, nausea , vomiting, constipation, or diarrhea. GENITOURINARY: Negative for urgency, frequency, dysuria, nocturia. MUSCULOSKELETAL: Negative for pain, swelling. NEUROLOGIC/PSYCHIATRIC: Negative for anxiety, depression. ALLERGY/IMMUNOLOGIC: Negative for skin rash, bleeding tendency. PHYSICAL EXAMINATION: GENERAL: This is a well-built male, no apparent distress. VITAL SIGNS: Temperature 97.9, pulse 80, respiratory rate 18, blood pressure 147/90. HEENT: Atraumatic, normocephalic. Oral mucosa is moist. NECK: Supple. CARDIOVASCULAR: S1, S2 heard. Rate and rhythm regular. RESPIRATORY: Clear. GASTROINTESTINAL: Abdomen is soft MUSCULOSKELETAL: No edema. No tenderness on the left hip region. He was able to reproduce the pain on weightbearing and when sitting down with pressure on the left hip. NEUROLOGIC: Alert, awake, moving all extremities. PSYCHIATRIC: Mood and affect normal. LABORATORY DATA: Hemoglobin 15.4, potassium 3.6, BUN 21, creatinine is 3.9. ASSESSMENT AND PLAN: 1. Left hip pain/flank pain. Plan is to have MRI. The patient had CT scan which was unremarkable except for the renal mass, suspicious for neoplasm. We will also consult Urology for further evaluation and input. 2. Pulmonary nodule. This needs to be looked due to the patient did have bone scan in the past. 3. Benign prostatic hypertrophy. We will continue Flomax. Consult Urology. 4. Edema controlled. 5. Renal mass. We will consult Urology. 6. Seasonal allergies. We will continue medication. 7. Pain, we will start on [place] and we will have morphine p.r.n. 8. BPH - continue flomax 9. Code status is full. 10. GI/DVT prophylaxis. We will closely monitor the patient. Job ID: [id number] MTDD
--- NOTE | 2018-09-15 14:30 | MRI ---
EXAM: MRI left hip without contrast PROVIDED CLINICAL HISTORY: Left hip pain COMPARISON: None FINDINGS: Regional marrow and muscular signal appears normal. The amount of fluid within the left hip joint riccardo ears physiologic. The tendons about the hip appear intact. The courses of the regional major neurovascular structures appear unremarkable. Degenerative tearing is noted involving the anterior reyes perior acetabular labrum. No focal articular cartilage defect is apparent. IMPRESSION: No evidence for an acute process.
[2018-09-15] MEDS ORDERED: ISOVUE-370 76%-LOCM 1 ML ONE (15:15)
[2018-09-15] MEDS: Famotidine 20 MG TAB PO SCH (20:39)
[2018-09-15] MEDS: Tamsulosin HCl 0.4 MG CAP PO SCH (22:47)
[2018-09-16 04:04] LABS: #Basophils 0.1 thou/uL (0.0-0.2); #Eosinphils 0.5 thou/uL (0.0-0.7); #Lymphocytes 1.5 thou/uL (1.20-3.40); #Monocytes 0.6 thou/uL (0.11-0.59); #Neutrophils 4.3 thou/uL (1.40-6.50); %Basophils 0.9 % (0.0-1.0); %Eosinophils 7.3 % (0.0-10.0); %Monocytes 8.1 % (0.0-10.0); %Neutrophils 61.7 % (42.0-75.0); Hemoglobin 13.8 g/dL (14.0-18.0); Mean Corpuscular HGB CONC 33.3 g/dL (32.0-36.0); Mean Corpuscular Hemoglobin 29.3 pg (27.0-31.0); Mean Corpuscular Volume 87.8 fL (78.0-98.0); Mean Platelet Volume 8.3 fL (7.4-10.4); Platelet Count 170 thou/uL (130-400); RBC Distribution Width 12.2 % (11.5-14.5); Red Blood Cell (RBC) Count 4.72 mill/uL (4.70-6.10)
[2018-09-16 04:18] LABS: Anion Gap 11 mmol/L (10-20); BUN (Urea Nitrogen) 17 mg/dL (8.4-25.7); Calc. Creatinine Clearance 112 mL/min (70-130); Calcium 8.8 mg/dL (7.8-10.44); Carbon Dioxide 24 mmol/L (23-31); Chloride 104 mmol/L (98-107); Estimated GFR-MDRD Greater than 90; Glucose 88 mg/dL (83-110); Potassium 3.8 mmol/L (3.5-5.1); Sodium 135 mmol/L (136-145)
[2018-09-16] MEDS: HYDROcodone/Acetaminophen 10/325 mg Tablet PO PRN (07:27)
[2018-09-16] MEDS: Famotidine 20 MG TAB PO SCH ×2 (07:27→20:04)
[2018-09-16] MEDS: Enoxaparin Sodium 40 MG/0.4 ML SYRINGE SC SCH (07:28)
--- NOTE | 2018-09-16 10:52 | PDOC.PN ---
- Subjective Encounter Start Date: 09/16/18 Encounter Start Time: 10:51 Patient seen and examined. No new complaints. No overnight events. pain is better with meds. c/o constipation. - Objective Resuscitation Status - Order Detail: 09/15/18 12:11 Resuscitation Status Routine Resuscitation Status: FULL: Full Resuscitation MAR Reviewed: Yes Vital Signs & Weight: Vital Signs (12 hours) Temp Pulse Resp BP Pulse Ox 09/16/18 07:02 97.7 F 68 20 177/98 H 96 09/16/18 03:57 97.8 F 69 16 152/88 H 94 L Weight Weight 204 lb 1.6 oz I&O: 09/15/18 09/16/18 09/17/18 06:59 06:59 06:59 Intake Total 740 Balance 740 Result Diagrams: 09/16/18 03:28 09/16/18 03:28 Phys Exam - Physical Examination Constitutional: NAD HEENT: sclera anicteric Neck: supple Respiratory: no wheezing Cardiovascular: RRR Gastrointestinal: soft Musculoskeletal: no edema Neurological: non-focal Psychiatric: normal affect, A&O x 3 Skin: no rash Dx/Plan (1) Hip pain Code(s): M25.559 - PAIN IN UNSPECIFIED HIP Status: Acute (2) Lung nodule Code(s): R91.1 - SOLITARY PULMONARY NODULE Status: Acute (3) Left flank pain Code(s): R10.9 - UNSPECIFIED ABDOMINAL PAIN Status: Acute (4) Renal mass, left Code(s): N28.89 - OTHER SPECIFIED DISORDERS OF KIDNEY AND URETER Status: Chronic (5) BPH (benign prostatic hyperplasia) Code(s): N40.0 - BENIGN PROSTATIC HYPERPLASIA WITHOUT LOWER URINRY TRACT SYMP Status: Chronic - Plan cont current plan of care, plan discussed w/ family * . MRI of hip negative awaiting urology input. continue pain meds add lactulose PT eval
[2018-09-16] MEDS ORDERED: traMADol HCl 50 MG TAB PO SCH (12:30)
[2018-09-16] MEDS ORDERED: Carvedilol 6.25 MG TAB PO SCH (12:45)
[2018-09-16] MEDS: Morphine 2 MG/ML SYRINGE SLOW IVP PRN (18:37)
[2018-09-16] MEDS: Ondansetron PF 4 MG/2 ML Vial IVP PRN (18:48)
[2018-09-16] MEDS: Tamsulosin HCl 0.4 MG CAP PO SCH (20:01)
[2018-09-16] MEDS: traMADol HCl 50 MG TAB PO SCH (20:01)
[2018-09-16] MEDS: Carvedilol 6.25 MG TAB PO SCH (20:02)
--- NOTE | 2018-09-16 21:19 | CON ---
DATE OF CONSULTATION: 09/16/2018 CONSULTING PHYSICIAN: Dr. Steiner. REASON FOR CONSULTATION: Renal mass, possible metastatic renal cell carcinoma. HISTORY OF PRESENT ILLNESS: Mr. Jo is a 72-year-old white male, who is well known to me for a history of a renal mass. He initially presented with what appeared to be a hemorrhagic renal cyst. On followup imaging as an outpatient, the patient had demonstrations of what appeared to be a complex Bosniak IV type renal lesion. We did discuss possible partial nephrectomy due to the large size measuring almost 7 cm. Due to the patient desiring nephron-sparing surgery, I had sent him to [facility] for consideration of a laparoscopic partial nephrectomy. The mass was fairly significant in size on repeat imaging there and they elected to observe the mass instead. The patient had been on observation, he is scheduled to go back to [facility] soon for a repeat CT scan and started having significant pain in his left flank, more toward the left lower quadrant near the inguinal region. He states the pain really only hurts on movement, specifically when standing or weightbearing. When he is lying flat, he does not have any pain at all. He went to a gis software engineer who performs several therapy sessions, but unfortunately the pain did not stop, so he was recommended to get a repeat CT scan. He was going to go to [facility], but due to them being on diversion, he came to [facility] and was admitted for pain control where he also underwent imaging. The repeat CT scan demonstrates a significant shrinkage in the mass down to 3.9 cm. An MRI was also done of the lower extremities, which demonstrated a potential labral tear on the acetabulum. There were no fractures on plain x-ray or noted on the MRI. On my discussion with the patient, he also states that he is not having any urinary difficulties such as hematuria. He otherwise has no other complaints besides this pain, which has been going on for about 2 weeks now. ALLERGIES: SULFA. HOME MEDICATIONS: 1. Flomax. 2. Zofran. 3. Flonase. 4. Pepcid. 5. Cipro. 6. Ibuprofen. PAST MEDICAL HISTORY: 1. Asthma. 2. BPH. 3. Allergic rhinitis. 4. Complex renal cyst. PAST SURGICAL HISTORY: 1. Sinus surgery. 2. Bilateral hernia repairs. SOCIAL HISTORY: The patient denies smoking, alcohol, or illicit drug use. He is currently . FAMILY HISTORY: Significant for lung cancer. REVIEW OF SYSTEMS: A 12-point review of systems is reviewed and otherwise negative other than what was commented on the HPI, specifically the patient's pain. He denies weight loss, fevers, chills, night sweats, chest pain or shortness of breath. Remainder of 12-point review of system was reviewed and otherwise negative. PHYSICAL EXAMINATION: VITAL SIGNS: Temperature 98, pulse 69, blood pressure 178/84, saturations 95% on room air, respirations 18. GENERAL: No apparent distress, communicating, and alert, appears stated age, well nourished, well developed. HEENT: Normocephalic, atraumatic. Sclerae nonicteric. Pupils symmetric and round. Trachea midline. Moist mucous membranes. CHEST: No increased work of breathing. Symmetric expansion. LUNGS: Clear anteriorly. CARDIOVASCULAR: Regular rate and rhythm. Normal S1, S2. Symmetric pulses. ABDOMEN: Soft, nontender, and nondistended. No organomegaly. No palpable renal mass. No suprapubic tenderness. No CVA tenderness. : Deferred at this time. EXTREMITIES: No clubbing, cyanosis, or edema. MUSCULOSKELETAL: No obvious joint deformities or joint erythema noted. The patient does not have pain on straight leg extension or distention, abduction or adduction. Range of motion appears to be intact. When patient stands, he does report pain in the previously specified location. NEUROLOGIC: Cranial nerves 2 through 12 grossly intact. No obvious focal or sensory motor deficits identified. PSYCHIATRIC: Alert and oriented x3. Appropriate mood and affect. LABORATORY DATA: On laboratory evaluation, the full set of labs are on the [facility] system, which I have reviewed. Of note, the patient's white count is 7 with hemoglobin of 13.8. Creatinine is 0.77. Urinalysis is entirely negative. IMAGING: CT done September 15, demonstrates a 3.9 cm cystic and solid inferior pole left renal mass suspicious for a possible neoplasm. There is also a 9 mm right lower pole pulmonary nodule, which may reflect a possible metastatic lesion. Pelvic x-ray is unremarkable. Lower extremity MRI demonstrates no evidence of any acute process. However, there is degenerative tearing noted involving the anterior superior acetabular labrum. ASSESSMENT AND PLAN: A 72-year-old white male with left flank/inguinal pain, which appears to be worse on weightbearing, but not with other movements or at rest. This is highly unlikely to be secondary to renal cell carcinoma. I am not entirely sure where the pain is coming from. His renal mass actually has shrunk quite a bit and per the patient, Dr. Sumner had told him that observation would be a better course of action rather than surgical excision. The pulmonary nodule has a low, but possible likelihood of representing metastatic cancer. I think it is reasonable to consider watching the pulmonary nodule as any other pulmonary nodule would be monitored by a palliative care nurse on a 6 month basis. The patient should keep followup with [facility] for continued surveillance versus consideration of biopsy of the solid components of the renal lesion. The patient had already elected that, if he was going to have surgery, he would do it at [facility]. From my standpoint, the patient does not require scheduled followup with me as he already has arranged follow up with Dr. Cathie Sumner at [facility]. From my standpoint, I do not have much else to contribute on this case. It appears that his pain is most likely musculoskeletal, although I am not sure or confident that this is the source. An Orthopedics consult can be placed, if thought necessary. Job ID: [id number]
[2018-09-17] MEDS: HYDROcodone/Acetaminophen 10/325 mg Tablet PO PRN (00:28)
[2018-09-17] MEDS: Ondansetron PF 4 MG/2 ML Vial IVP PRN (07:37)
[2018-09-17] MEDS: Senokot S 8.6-50 MG TAB PO PRN ×2 (07:44→18:16)
[2018-09-17] MEDS: Famotidine 20 MG TAB PO SCH ×2 (08:29→20:14)
[2018-09-17] MEDS: traMADol HCl 50 MG TAB PO SCH ×2 (08:35→21:00)
[2018-09-17] MEDS: Enoxaparin Sodium 40 MG/0.4 ML SYRINGE SC SCH (08:36)
[2018-09-17] MEDS: Carvedilol 6.25 MG TAB PO SCH ×2 (08:36→20:13)
[2018-09-17] MEDS ORDERED: Promethazine HCl 25 MG/ML VIAL SLOW IVP SCH (09:00)
--- NOTE | 2018-09-17 10:22 | PDOC.PN ---
- Subjective Encounter Start Date: 09/17/18 Encounter Start Time: 08:45 Subjective: f/u for L hip pain and difficulty with ambulating. Nsg reports pt had -: episode of emesis this am. Had liquids but no food. Ambulating short -: distances but L hip pain persists. - Objective Resuscitation Status - Order Detail: 09/15/18 12:11 Resuscitation Status Routine Resuscitation Status: FULL: Full Resuscitation MAR Reviewed: Yes Vital Signs & Weight: Vital Signs (12 hours) Temp Pulse Resp BP BP BP Pulse Ox 09/17/18 09:00 190/104 H 09/17/18 08:36 168/96 H 09/17/18 08:00 97.7 F 55 L 12 168/96 H 96 09/17/18 00:30 98.7 F 58 L 18 167/81 H 98 Weight Weight 204 lb 1.6 oz I&O: 09/16/18 09/17/18 09/18/18 06:59 06:59 06:59 Intake Total 740 1350 Balance 740 1350 Result Diagrams: 09/16/18 03:28 09/16/18 03:28 Radiology Reviewed by me: Yes (MRI L hip - labral tear) Phys Exam - Physical Examination Constitutional: NAD HEENT: PERRLA, sclera anicteric, oral pharynx no lesions Neck: no nodes, no JVD, supple, full ROM Respiratory: no wheezing, no rales, no rhonchi, clear to auscultation bilateral S1, S2 Cardiovascular: RRR, no significant murmur, no rub, gallop Gastrointestinal: soft, non-tender, no distention, positive bowel sounds Musculoskeletal: no edema, pulses present Neurological: normal sensation, moves all 4 limbs Psychiatric: A&O x 3 Skin: normal turgor, cap refill <2 seconds Dx/Plan (1) Left hip pain Code(s): M25.552 - PAIN IN LEFT HIP Status: Acute Comment: Persistent pain in L hip, ? labral tear etiology, consult Ortho for any further recommendations , pain control with [facility], add Toradol 30mg IV q6h, PT evaluation (2) Renal mass, left Code(s): N28.89 - OTHER SPECIFIED DISORDERS OF KIDNEY AND URETER Status: Chronic Comment: Likely Renal Cell Carcinoma, plan for outpt follow up with [facility] for evaluation and further mgmt (3) Nausea & vomiting Code(s): R11.2 - NAUSEA WITH VOMITING, UNSPECIFIED Status: Acute Comment: Likely iatrogenic due to pain medications, Zofran/Phenergan prn, limit narcotics , serial monitoring (4) Bilateral renal cysts Code(s): N28.1 - CYST OF KIDNEY, ACQUIRED Status: Chronic - Plan PT/OT, out of bed/ambulate, DVT proph w/SCDs Stable currently -: PT evaluation for functional assessment -: Consult Orthopedics -: Trial Toradol 30mg IV q6h -: Likely home in 24h * .
[2018-09-17] MEDS ORDERED: Ketorolac Tromethamine 30 MG/ML VIAL IVP SCH (10:30)
[2018-09-17] MEDS: Ketorolac Tromethamine 30 MG/ML VIAL IVP SCH ×3 (12:38→23:36)
--- NOTE | 2018-09-17 18:47 | CON ---
DATE OF CONSULTATION: 09/17/2018 BRIEF HISTORY OF PRESENT ILLNESS: The patient is a 72-year-old gentleman with a history of benign prostatic hypertrophy as well as a renal mass, which has been followed by [facility]. The patient was admitted on September 15 for progressively worsening low back and left flank pain. He does not report an obvious traumatic event. He was due to follow up at [facility] for repeat diagnostic studies to follow his renal mass. However, due to the ongoing pain, presented to [facility] for evaluation. The patient was admitted and workup has included a MRI of the pelvis with localization of the left hip as well as a CT scan of the trunk and pelvis. Plain x-rays also obtained of the pelvis. He has had a consultation from Dr. Gold, who did not feel that this current pain was related to his kidney problem and did question whether there might be a musculoskeletal origin for the pain and as such Orthopedic consultation requested. Prior to admission to the hospital, the patient did see his "Reflexology" on 3 occasions; however, none of these treatments helped. He does not report recent fevers, chills, or sweats. He denies nausea or vomiting. When asked to point to his area of maximal discomfort, he points to the left flank just above the iliac crest as his area of maximal discomfort. PAST MEDICAL HISTORY: Remarkable for benign prostatic hypertrophy and renal mass and a history of asthma. PAST SURGICAL HISTORY: Includes sinus surgery and bilateral herniorrhaphy. MEDICATIONS: At home include; 1. Flomax. 2. Zofran. 3. Flonase. 4. Pepcid. 5. Ciprofloxacin. 6. Ibuprofen. ALLERGIES: TO SULFA DRUGS. SOCIAL HISTORY: Denies smoking, alcohol, or drugs. FAMILY HISTORY: Unremarkable for any obvious pelvis problems. REVIEW OF SYSTEMS: Denies recent fevers, chills, or sweats. Denies shortness of breath or chest pain. Denies numbness or tingling in his lower extremities. PHYSICAL EXAMINATION: VITAL SIGNS: Temperature 97.7, heart rate of 55, respiratory rate of 12, and blood pressure 190/104. GENERAL: The patient is examined in his hospital bed. His is at bedside. HEENT: Atraumatic and normocephalic. RESPIRATORY: Remarkable for no unlabored breathing. PELVIS: His pelvis is remarkable for excellent stability to compression. I am not able to elicit any areas of tenderness to palpation along the iliac crest, along the abdominal musculature, or along the groin area. He was found to have a negative straight leg raise on the left side up to approximately 60 degrees, but with hamstring tightness. In the 90/90 position at the hip, he was found to have relatively supple range of motion with approximately 25 degrees of internal rotation and 35 degrees of external rotation, but with no groin pain whatsoever. Distally, he is found to have 4/5 strength of the EHL compared to 5/5 on the contralateral side. He has 4+/5 strength with ankle dorsiflexion compared to 5/5. He has 5/5 strength with plantar flexion as well as quadriceps and hamstring. X-RAYS: AP pelvis x-ray reviewed and remarkable for some mild degenerative changes in the left hip with narrowing of the joint space and perhaps some mild marginal osteophyte formation around the acetabulum, but no acute processes noted. I have reviewed the CT scan of his pelvis and did not appreciate any fractures of the pelvic ring. This scan does show some of the degenerative changes within the hip. An MRI of the left hip with initial cuts at the full pelvis remarkable for some irregularity of the chondral surface of the left hip consistent with this plain x-ray findings, some degenerative changes of the acetabular labrum. However, I do not feel this reflects a symptomatic labral tear and he certainly does not have complaints of groin pain now or even prior to this admission. On my further review of the MRI, there does appear to be some asymmetric fluid collection between the iliac wing and the iliacus muscle itself and the iliac muscle itself does have some signal change within it. These findings were not commented on by the radiologist's reading the film. ASSESSMENT AND PLAN: A 72-year-old gentleman with insidious onset of left flank pain with known renal mass. At this time, I do not find any evidence for primary hip pathology. He does have a negative straight leg raise today, although his pain distribution does sound suspicious for radiculopathy initially with pain radiating down the leg toward the toes, although now he reports his pain is almost circumferential at about the level of the iliac brim. On my review of MRI and concerns of perhaps there has been some strain of the iliacus. We will contact Radiology and ask them to further look at this region and make comment regarding some of the excess fluid below the iliacus muscle belly. In the meantime, I agree with current treatment with anti-inflammatories and progressive mobilization. We will follow the patient distantly while he is in the hospital. Job ID: [id number]
[2018-09-17] MEDS: Tamsulosin HCl 0.4 MG CAP PO SCH (20:14)
[2018-09-18] MEDS ORDERED: Bisacodyl 10 MG SUPP PR PRN (03:47)
[2018-09-18] MEDS ORDERED: Fleet Enema 133 ML BOT PR PRN (04:56)
[2018-09-18] MEDS: Ketorolac Tromethamine 30 MG/ML VIAL IVP SCH (05:49)
[2018-09-18 08:09] VITALS: TEMP 97.9
[2018-09-18] MEDS: traMADol HCl 50 MG TAB PO SCH (09:02)
[2018-09-18] MEDS: Famotidine 20 MG TAB PO SCH (09:04)
[2018-09-18] MEDS: Enoxaparin Sodium 40 MG/0.4 ML SYRINGE SC SCH (09:04)
[2018-09-18] MEDS: Carvedilol 6.25 MG TAB PO SCH (09:04)
[2018-09-18 09:05] VITALS: BP 168/96
--- NOTE | 2018-09-18 11:52 | DIS ---
DATE OF ADMISSION: 09/15/2018 DATE OF DISCHARGE: 09/18/2018 DISCHARGE DIAGNOSES: 1. Left hip pain, questionable etiology, resolved. 2. Left renal mass suspicious for malignant process. 3. Nausea and vomiting, resolved. 4. Bilateral renal cysts, chronic. CONSULTATIONS: 1. Manish Smart MD with Orthopedic Surgery Service. 2. Sudhakar Gold MD with Urology Service. PERTINENT LAB AND X-RAY FINDINGS: Total bilirubin 2.2, AST 22, ALT of 20, and alkaline phosphatase 68. CBC showed a hemoglobin ranged between 13.8 [address] 15[address] Ur[address]ysis negative. CT of the abdomen and pelvis dated 09/15/2018, showed 3.9 cm cystic and solid inferior pole left renal mass suspicious for a neoplastic process. A 9 mm right lower lobe pulmonary nodule. Pelvic radiographs dated 09/15/2018, showed no acute process. Left lower extremity MRI dated 09/15/2018, showed no acute process. HOSPITAL COURSE: The patient was observed on the medical floor after initially presenting with left back, flank, and hip pain. The patient was evaluated with multiple imaging modalities including CT of the abdomen and pelvis, pelvic radiographs, and left lower extremity MRI. No specific identifiable etiology noted and the patient was treated supportively with tramadol and Toradol for pain relief. The patient had slow improvement of his hip pain; however, was ambulating without assistance or difficulty by the time of discharge. The patient was evaluated by the Orthopedic Surgery Service with recommendations for conservative management without acute surgical intervention noted or recommended. The patient was also evaluated by the Urology Service due to left renal neoplasm with recommendations to follow up with [facility] in [place], [place]. No specific recommendations for acute intervention noted. Overall, the patient did remain clinically stable during the hospital course, tolerating regular oral intake with stable vital signs. I have examined the patient at the time of discharge and discussed followup instructions. The patient verbalized understanding and agreement ready for discharge on 09/18/2018. DISCHARGE MEDICATIONS: 1. Flonase 1 spray in each naris daily. 2. Claritin 10 mg p.o. daily. 3. Flomax 0.4 mg p.o. at bedtime. 4. Toradol 10 mg p.o. q.6 hours p.r.n. pain x5 days. FOLLOWUP: The patient may follow up with primary care provider, Dr. Moi Almonte within 7 days of discharge. The patient may follow up with Dr. Gold as needed. CONDITION ON DISCHARGE: Stable. ACTIVITY: Ad-joe. DIET: Regular. CODE STATUS: Full. DISPOSITION: To home on 09/18/2018. Job ID: [id number]
--- NOTE | 2018-09-19 10:01 | PRG ---
DATE OF SERVICE: 09/17/2018 SUBJECTIVE: The patient states he is feeling better. He was started on Toradol for inflammatory tendon and joint pain at his left hip. He is feeling much better and is able to walk with minimal pain. Dr. Smart has seen the patient and stated that he felt that the symptoms were likely coming from some type of psoas or iliacus type symptom or something with the joint itself. OBJECTIVE: VITAL SIGNS: Temperature 97.7, pulse 58, respirations 16, blood pressure 155/86, and saturation 98% on room air. GENERAL: No apparent distress. ABDOMEN: Soft, nontender, and nondistended. Positive bowel sounds. EXTREMITIES: No clubbing, cyanosis, or edema. LABORATORY DATA: No new labs. IMAGING DATA: I have reviewed the patient's imaging and it does demonstrate significant reduction in the size of the mass on CT scan with a negative bone scan, which had been previously done. ASSESSMENT AND PLAN: A 72-year-old white male with left groin pain, which is likely secondary to some type of arthritis or tendinitis of the left hip. He is doing better on NSAIDs and I think this is reasonable treatment. It is extremely unlikely that his renal mass is causing any kind of pain given the significant reduction in size. Additionally, the pulmonary nodule while it may represent a metastatic lesion is extremely unlikely to be this. The patient already has scheduled followup with [facility] and I would recommend that he keep those appointments. He does not need to follow up with me at this time as he has urologist there who is following his renal mass and will provide definitive treatment if necessary. From my standpoint, I will sign off and he can be discharged when ready by the primary team. Job ID: [id number]
== END 2018-09-18 11:26 | disposition home or self-care (01) ==
LOC: ERS 05:43 → ONC 09:50
PROVIDERS: ADMIT Internal Medicine Nephrology; ATTEND Internal Medicine Nephrology
DX: M25.552 Pain in left hip (principal); M54.9 Dorsalgia, unspecified; N28.1 Cyst of kidney, acquired; J45.909 Unspecified asthma, uncomplicated; N40.0 Benign prostatic hyperplasia without lower urinary tract symptoms; R91.1 Solitary pulmonary nodule; R60.9 Edema, unspecified; Z79.899 Other long term (current) drug therapy; Z88.2 Allergy status to sulfonamides
CPT/HCPCS: 72170; 73721; 74177; 80048; 80053; 81003; 82248; 83735; 85025 ×2; 96361; 96365; 96372; 96375 ×2; 96376 ×4; 97139; 99285; G0378 ×2; 36415; J1170; J1650; J1885; J2270; J2405; J2550; Q9966